=== PATIENT | male | born 2000 | race Hispanic/Latino ===

== ENCOUNTER 2022-01-20 19:16 | Emergency (ER) | payer BC ==
[~2022-01-20] VITALS: Ht 170.2 cm; Wt 100.0 kg
[~2022-01-20 19:16] MED LIST: AMOXICILLIN500 MG OR; CEPHALEXIN250 MG PO; NO
[2022-01-20] MEDS ORDERED: CORTISPORIN OTI10 ML AD (21:19)
[2022-01-20] MEDS ORDERED: CIPROFLOXACN750 MG PO (21:19)
[2022-01-20 21:50] VITALS: BP 140/82
== END 2022-01-20 21:50 | disposition home or self-care (01) | DRG 153 ==
LOC: ED 19:16
DX: H66.92 Otitis media, unspecified, left ear (principal); H60.92 Unspecified otitis externa, left ear